=== PATIENT | male | born 1985 | race African-American/Black ===

== ENCOUNTER 2020-06-11 15:37 | Emergency (ER) | payer OTHER ==
[~2020-06-11] VITALS: Ht 185.4 cm; Wt 118.7 kg
[2020-06-11 15:38] VITALS: BP 140/84
[2020-06-11 18:24] LABS: CHLAMYDIA DNA AMPLIFICATION NEGATIVE (NEGATIVE); GC DNA AMPLIFICATION NEGATIVE (NEGATIVE)
[2020-06-11] MEDS ORDERED: [UNRECOGNIZED DRUG - CODE] PO (19:24)
[2020-06-11] MEDS ORDERED: cefTRIAXone 500MG VIAL (J0696 PER 250MG) IM ONE (19:30)
[2020-06-11] MEDS ORDERED: LIDOCAINE 1% SDV 5ML VIAL DILUENT ONE (19:30)
[2020-06-12] MEDS ORDERED: AZIT1POW4 PO (16:58)
== END 2020-06-11 20:18 | disposition home or self-care (01) ==
LOC: M ED 15:37
DX: N34.1 Nonspecific urethritis (principal); D75.A Glucose-6-phosphate dehydrogenase (G6PD) deficiency without anemia; Z88.1 Allergy status to other antibiotic agents; Z88.2 Allergy status to sulfonamides; Z88.8 Allergy status to other drugs, medicaments and biological substances
CPT/HCPCS: 81001; 87491; 87591; 96372; 99283; J0696